=== PATIENT | male | born 1955 | race Caucasian/White ===

== ENCOUNTER 2017-07-21 17:53 | Emergency (ER) | payer BC ==
[~2017-07-21] VITALS: Ht 198.1 cm; Wt 108.4 kg
[~2017-07-21 17:53] MED LIST: FAMO-12 PO; LIS10T PO; MONT10TA34 PO; RIVA10TA2 PO
[2017-07-21] MEDS ORDERED: fentaNYL 50MCG/HR 50 MCG/HR PAT TD ONE (18:15)
[2017-07-21] MEDS ORDERED: NALBUPHINE HCL 10 MG/1ml INJECTION IV ONE (18:45)
[2017-07-21] MEDS ORDERED: ONDANSETRON HCL 4 MG/2 ML VIAL IV ONE (18:45)
[2017-07-21 19:16] LABS: Urine Bacteria NONE SEEN /hpf (None Seen); Urine Blood Negative /uL (Negative); Urine Hyaline Cast FEW /lpf (0 - 2); Urine Specific Gravity 1.008 (1.001-1.035); Urine WBC <1 /hpf (0 - 3)
[2017-07-21] MEDS ORDERED: HYDROmorphone HCL 2 MG/ML VL IV ONE (20:15)
[2017-07-21 20:25] VITALS: BP 144/92
== END 2017-07-21 20:35 | disposition home or self-care (01) ==
LOC: ER 17:53
DX: C78.7 Secondary malignant neoplasm of liver and intrahepatic bile duct (principal); R63.4 Abnormal weight loss; Z88.6 Allergy status to analgesic agent; Z88.5 Allergy status to narcotic agent
CPT/HCPCS: 81001; 93005; 96374; 96375; 99284; J1170; J2300; J2405